=== PATIENT | male | born 1970 | race American Indian/Alaskan Native ===

== ENCOUNTER 2021-01-12 19:26 | Emergency (ER) | payer MEDICAID ==
[2021-01-12 19:53] VITALS: BP 146/99
[2021-01-12] MEDS ORDERED: KETOROLAC 30 MG/1 ML INJ IM ONE (20:17)
--- NOTE | 2021-01-12 20:19 | Emergency Department Report ---
Chief Complaint: Extremity Injury, Upper Stated Complaint: CP Time Seen by Provider: 01/12/21 20:17 - HPI History of Present Illness: 50-year-old male presents emergency department chief complaint of generalized body aches with pain up in the upper trapezius muscle, entire back and swelling to his ankles. Patient reports he just went on a fishing trip to [facility] and pain symptoms started shortly after. - ROS Review of Systems: Patient denies associated fever, chills night sweats, recommendations, or vision, chest pain or shortness of breath, weakness or any other associated symptoms. - Exam Vital Signs: Vital Signs 01/12/21 19:49 Temperature 98.2 F Pulse Rate 85 Respiratory 18 Rate Blood Pressure 146/99 [Left] O2 Sat by Pulse 98 Oximetry Physical Exam: GENERAL APPEARANCE: Well-developed, well-nourished, no acute distress HEENT: Normocephalic and atraumatic. No scleral icterus. Pupils are equal, round, and reactive to light and accommodation. No conjunctival injection is noted. Oropharynx is clear. Mouth revealed good dentition, no lesions. Tympanic membranes are clear. NECK: Supple. Trachea is midline. No evidence of thyroid enlargement. No lymphadenopathy or tenderness. CHEST: Symmetric. Nontender to palpation. LUNGS: Breath sounds are equal and clear bilaterally. No wheezes, rhonchi, or rales. HEART: Regular rate and rhythm with normal S1 and S2. No murmurs, gallops, or rubs. BREASTS: Symmetrical. No skin or nipple retractions. No nipple discharges or masses. ABDOMEN: Soft, flat, and benign. No mass, tenderness, guarding, or rebound. No organomegaly or hernia. Bowel sounds are present. No CVA tenderness or flank mass. GENITOURINARY: Deferred RECTAL: Deferred EXTREMITIES: No cyanosis, clubbing, or edema. No lower extreme edema, negative Homans sign bilaterally NEUROLOGIC: No focal sensory or motor deficits are noted. Gait is normal. Cranial nerves II through XII are intact. Deep tendon reflexes are intact. PSYCHIATRIC: The patient is awake, alert, and oriented x3. Recent and remote memory is intact. Appropriate mood and affect. SKIN: Warm, dry, and well perfused. Good turgor. No lesions, nodules or rashes are noted. No onychomycosis. LYMPHATICS: No cervical, axillary, or groin adenopathy is noted. MSE screening note: Focused history and physical exam performed. Due to findings the following was ordered: CBC, CMP, CK, urinalysis, EKG ED Disposition for MSE Condition: Stable
[2021-01-12 20:53] LABS: Basophils % (Auto) 0.2 % (0.0-1.8); Eosinophils % (Auto) 0.1 % (0.0-4.3); Lymphocytes # (Auto) 0.9 K/mm3 (1.2-5.4); Lymphocytes % (Auto) 5.9 % (13.4-35.0); Mean Corpuscular HGB Conc 32 % (32-34); Mean Corpuscular Volume 91 fl (84-94); Monocytes # (Auto) 1.8 K/mm3 (0.0-0.8); Monocytes % (Auto) 11.1 % (0.0-7.3); Platelet Count 134 K/mm3 (140-440); Red Blood Count 5.81 M/mm3 (3.65-5.03); Red Cell Distribution Width 14.3 % (13.2-15.2)
[2021-01-12 21:16] LABS: Alanine Aminotransferase 43 units/L (7-56); Albumin 4.5 g/dL (3.9-5); Blood Urea Nitrogen 17 mg/dL (9-20); Calcium 9.5 mg/dL (8.4-10.2); Hemolysis Index 4
[2021-01-12 21:20] LABS: BUN/Creatinine Ratio 24
[2021-01-12] MEDS ORDERED: POTASSIUM CHLORIDE ER 20 MEQ TAB PO ONE (21:28)
--- NOTE | 2021-01-12 21:44 | XRay Report ---
CHEST 2 VIEWS INDICATION / CLINICAL INFORMATION: Chest pain, weakness. COMPARISON: None available. FINDINGS: SUPPORT DEVICES: None. HEART / MEDIASTINUM: No significant abnormality. LUNGS / PLEURA: No significant pulmonary abnormality. No significant pleural effusion. No pneumothora x. ADDITIONAL FINDINGS: No significant additional findings. IMPRESSION: 1. No acute abnormality of the chest. Signer Name: Tong Arnold MD Signed: 01/12/2021 9:40 PM Workstation Name: [id number]
[2021-01-12] MEDS ORDERED: COLCHICINE 0.6 MG TAB PO ONE (23:13)
[2021-01-12] MEDS ORDERED: oxyCODONE /ACETAMINOPHEN 5-325MG TAB PO ONE (23:13)
[2021-01-12] MEDS ORDERED: predniSONE 20 MG TAB PO ONE (23:13)
[2021-01-12] MEDS ORDERED: ONDANSETRON 4 MG ODT TAB PO ONE (23:13)
--- NOTE | 2021-01-12 23:59 | Emergency Department Report ---
ED General Adult HPI - General Chief complaint: Extremity Injury, Upper Stated complaint: CP Time Seen by Provider: 01/12/21 20:17 Source: patient Mode of arrival: Ambulatory Limitations: No Limitations - History of Present Illness Initial comments: Patient is a 50-year-old -[place] male with a history of hypertension who presents to the ED with complaint of acute onset persistent left foot pain at the first MTP joint, bilateral ankle pain, left shoulder and low back pain for the last 1 week, worse in the last 3 days. Patient states that he was on vacation in [facility] when he started experiencing the symptoms. Patient states that while on vacation he ate a lot of seafood and drank a lot of beer and red meat. Patient denies fall, traumatic injury, nausea, vomiting, fever, chills, cough, chest pain or shortness of breath, abdominal pain, headache, heavy lifting, numbness and tingling or weakness of upper and lower extremities bilaterally. MD Complaint: polyarticular joint pains, body aches and pains; left shoulder, foot pains -: Sudden, week(s) (1) Location: back (Low back pain), upper extremity (Left shoulder pain), lower extremity (Bilateral foot and ankle pain) Radiation: other (Diffuse) Severity scale (0 -10): 8 Quality: aching, sharp Consistency: constant Improves with: none Worsens with: movement Associated Symptoms: weakness. denies: denies other symptoms, confusion, chest pain, cough, diaphoresis, fever/chills, headaches, loss of appetite, malaise, rash, seizure, shortness of breath, syncope, other Treatments Prior to Arrival: none - Related Data Previous Rx's Medication Instructions Recorded Last Taken Type Baclofen 20 mg PO Q12H PRN #24 tablet 01/13/21 Unknown Rx Colchicine 0.6 mg PO BID #20 tablet 01/13/21 Unknown Rx Indomethacin 50 mg PO Q8H PRN #45 capsule 01/13/21 Unknown Rx predniSONE [Deltasone] 60 mg PO QDAY #15 tab 01/13/21 Unknown Rx traMADoL [Ultram] 50 mg PO Q6HR PRN #12 tablet 01/13/21 Unknown Rx Allergies Allergy/AdvReac Type Severity Reaction Status Date / Time No Known Allergies Allergy Verified 01/12/21 20:33 ED Review of Systems ROS: Stated complaint: CP Other details as noted in HPI Constitutional: denies: chills, fever Eyes: denies: eye pain, eye discharge, vision change ENT: denies: ear pain, throat pain Respiratory: denies: cough, shortness of breath, wheezing Cardiovascular: denies: chest pain, palpitations Endocrine: no symptoms reported Gastrointestinal: denies: abdominal pain, nausea, vomiting, diarrhea Genitourinary: denies: urgency, dysuria Musculoskeletal: back pain (Low back pain), arthralgia (Bilateral ankle and foot pain; left shoulder pain), myalgia. denies: joint swelling Skin: denies: rash, lesions Neurological: denies: headache, weakness, paresthesias Psychiatric: denies: anxiety, depression Hematological/Lymphatic: denies: easy bleeding, easy bruising ED Past Medical Hx - Past Medical History Previous Medical History?: No Hx Hypertension: Yes (Amlodipine 5mg) - Surgical History Past Surgical History?: Yes Additional Surgical History: Lumbar surgery 2020 - Medications Home Medications: Home Medications Medication Instructions Recorded Confirmed Last Taken Type Baclofen 20 mg PO Q12H PRN #24 tablet 01/13/21 Unknown Rx Colchicine 0.6 mg PO BID #20 tablet 01/13/21 Unknown Rx Indomethacin 50 mg PO Q8H PRN #45 capsule 01/13/21 Unknown Rx predniSONE [Deltasone] 60 mg PO QDAY #15 tab 01/13/21 Unknown Rx traMADoL [Ultram] 50 mg PO Q6HR PRN #12 tablet 01/13/21 Unknown Rx ED Physical Exam - General Limitations: No Limitations General appearance: alert, in no apparent distress - Head Head exam: Present: atraumatic, normocephalic, normal inspection - Eye Eye exam: Present: normal appearance, PERRL, EOMI Pupils: Present: normal accommodation - ENT ENT exam: Present: normal exam, normal orophraynx, mucous membranes moist, TM's normal bilaterally, normal external ear exam - Neck Neck exam: Present: normal inspection, full ROM. Absent: tenderness, meningismus - Respiratory Respiratory exam: Present: normal lung sounds bilaterally. Absent: respiratory distress, wheezes, rales, stridor, chest wall tenderness, accessory muscle use, decreased breath sounds, prolonged expiratory - Cardiovascular Cardiovascular Exam: Present: regular rate, normal rhythm, normal heart sounds. Absent: systolic murmur, diastolic murmur, rubs, gallop - GI/Abdominal GI/Abdominal exam: Present: soft, normal bowel sounds. Absent: tenderness, guarding, rebound, rigid, hyperactive bowel sounds, hypoactive bowel sounds, mass - Extremities Exam Extremities exam: Present: normal inspection, full ROM, tenderness (Palpable bilateral ankle and foot tenderness; palpable left shoulder tenderness), normal capillary refill - Back Exam Back exam: Present: normal inspection, full ROM, tenderness (Palpable lumbosacral paraspinal musculoskeletal tenderness), muscle spasm, paraspinal tenderness. Absent: CVA tenderness (R), CVA tenderness (L), vertebral tenderness - Neurological Exam Neurological exam: Present: alert, oriented X3, CN II-XII intact, normal gait, reflexes normal - Psychiatric Psychiatric exam: Present: normal affect, normal mood - Skin Skin exam: Present: warm, dry, intact, normal color. Absent: rash ED Course Vital Signs 01/12/21 19:49 Temperature 98.2 F Pulse Rate 85 Respiratory 18 Rate Blood Pressure 146/99 [Left] O2 Sat by Pulse 98 Oximetry ED Medical Decision Making - Lab Data Result diagrams: 01/12/21 20:23 01/12/21 20:23 - Radiology Data Radiology results: report reviewed, image reviewed [facility] [address] [place] [address] XRay Report Signed Patient: ABEL ORTIZ MR#: [id number] : 1970 Acct:[id number] Age/Sex: 50 / M ADM Date: 01/12/21 Loc: ED Attending Dr: Ordering Physician: THOMAS YBARRA Date of Service: 01/12/21 Procedure(s): XR chest routine 2V Accession Number(s): [id number] cc: THOMAS YBARRA Fluoro Time In Minutes: CHEST 2 VIEWS INDICATION / CLINICAL INFORMATION: Chest pain, weakness. COMPARISON: None available. FINDINGS: SUPPORT DEVICES: None. HEART / MEDIASTINUM: No significant abnormality. LUNGS / PLEURA: No significant pulmonary abnormality. No significant pleural effusion. No pneumothorax. ADDITIONAL FINDINGS: No significant additional findings. IMPRESSION: 1. No acute abnormality of the chest. Signer Name: Tong Arnold MD Signed: 01/12/2021 9:40 PM Workstation Name: [id number] Transcribed By: MN Dictated By: Tong Arnold MD Electronically Authenticated By: Tong Arnold MD Signed Date/Time: 01/12/212139 DD/ 38 TD/TT: Print - Medical Decision Making This is a 50-year-old -[place] male with a history of hypertension who presents to the ED with complaint of acute onset persistent left foot pain at the first MTP joint, bilateral ankle pain, left shoulder and low back pain for the last 1 week, worse in the last 3 days. Patient states that he was on vacation in [facility] when he started experiencing the symptoms. Patient states that while on vacation he ate a lot of seafood and drank a lot of beer and red meat. In the ED, patient is alert and oriented x3 and is not in any distress. Patient is hemodynamically stable. Lab test results were reviewed and are all nonactionable. Chest x-ray showed no acute cardiopulmonary abnormalities or pneumonitis. Based on the history and physical exam findings, the patient symptoms are likely due to acute gouty arthropathy. On reevaluation, patient's pain is well controlled medication. Patient will discharge home on pain medications and advised to follow-up with his primary care physician in 7 to 10 days for reevaluation or return to the ED immediately if symptoms get worse. - Differential Diagnosis Muscle spasm; gouty arthropathy; osteoarthritis; muscle strain; tendinitis Critical care attestation.: If time is entered above; I have spent that time in minutes in the direct care of this critically ill patient, excluding procedure time. ED Disposition Clinical Impression: Tendinitis of both ankles, Acute gouty arthropathy Muscle strain of left shoulder region Qualifiers: Encounter type: initial encounter Qualified Code(s): S46.912A - Strain of unspecified muscle, fascia and tendon at shoulder and upper arm level, left arm, initial encounter Disposition: HOME / SELF CARE / HOMELESS Is pt being admited?: No Does the pt Need Aspirin: No Condition: Stable Instructions: Muscle Strain, [id number], Low-Purine Eating Plan, Tendinitis, [id number] Additional Instructions: All lab test results were reviewed and are all nonactionable. Chest x-ray showed no acute cardiopulmonary abnormalities or pneumonitis. Based on the history and physical exam findings, your pain is likely due to acute gouty arthr opathy versus muscle strain versus tendinitis. Therefore take medications with food, drink plenty of fluids and follow-up with your primary care physician in 7 to 10 days for reevaluation. Return to the ED immediately if symptoms get worse. Prescriptions: Baclofen 20 mg PO Q12H PRN #24 tablet PRN Reason: Muscle Spasm Colchicine 0.6 mg PO BID #20 tablet predniSONE [Deltasone] 60 mg PO QDAY #15 tab Indomethacin 50 mg PO Q8H PRN #45 capsule PRN Reason: Pain , Severe (7-10) traMADoL [Ultram] 50 mg PO Q6HR PRN #12 tablet PRN Reason: Pain Referrals: [facility] [Provider Group] - 3-5 Days Time of Disposition: 00:03 Print Language: BELARUSIAN
--- NOTE | 2021-01-14 12:06 | Electrocardiograph Report ---
[facility] Test Date: 2021-01-12 Test Time: 19:24:45 Pat Name: ABEL ORTIZ Department: Room: Gender: M Account Processor: RAMIRO : 1970 Requested By: TITI CASTILLO Order Number: [id number] Reading MD: Ronny Hannon Measurements Intervals [place] Rate: 89 P: 50 SC: 158 QRS: 60 QRSD: 85 T: QT: 326 QTc: 397 Interpretive Statements Sinus rhythm Atrial premature complex LAE, consider biatrial enlargement Probable left ventricular hypertrophy Nonspecific T abnormalities, lateral leads No previous ECG available for comparison Electronically Signed On 01-14-2021 12:05:58 EST by Ronny Hannon
== END 2021-01-13 00:13 | disposition home or self-care (01) ==
LOC: ED 19:26
DX: M65.879 Other synovitis and tenosynovitis, unspecified ankle and foot (principal); M10.9 Gout, unspecified; S46.912A Strain of unspecified muscle, fascia and tendon at shoulder and upper arm level, left arm, initial encounter; X58.XXXA Exposure to other specified factors, initial encounter; Y93.89 Activity, other specified; Y92.89 Other specified places as the place of occurrence of the external cause; Y99.8 Other external cause status
CPT/HCPCS: 36415; 71046; 80053; 82550; 85025; 93005; 96372; 99284; J1885; J7512; J3490; Q0162